=== PATIENT | female | born 1990 | race African-American/Black ===

== ENCOUNTER 2023-10-25 09:10 | Outpatient (OUT) | payer OTHER, SELFPAY ==
[2023-10-25 10:20] LABS: Basophils Percent Auto 0.4 % (0.2-2.0); Eosinophils Percent Auto 0.5 % (0.9-7.0); Hematocrit 44.9 % (36.0-48.0); Hemoglobin 14.2 g/dL (12.0-16.0); Immature Granulocytes Abs Auto 0.02 10^3/uL (0.00-0.03); Immature Granulocytes Pct Auto 0.3 % (0.0-0.5); Lymphocytes Absolute Auto 3.3 10^3/uL (1.2-3.8); Lymphocytes Percent Auto 43.5 % (20.5-60.0); Mean Corpuscular HGB Conc 31.6 g/dL (29.9-35.2); Mean Corpuscular Hemoglobin 27.4 pg (26.7-34.0); Mean Corpuscular Volume 86.7 fL (81.0-99.0); Mean Platelet Volume 10.9 fL (9.5-13.5); Monocytes Absolute Auto 0.6 10^3/uL (0.3-0.8); Monocytes Percent Auto 8.5 % (1.7-12.0); Neutrophils Absolute Auto 3.6 10^3/uL (1.4-6.5); Neutrophils Percent Auto 46.8 % (43.0-75.0); Platelet Count 276 10^3/uL (150-450); Red Blood Count 5.18 10^6/uL (4.20-5.40); Red Cell Distribution Width 12.6 % (11.0-15.0); White Blood Count 7.6 10^3/uL (4.0-11.0)
[2023-10-25 11:00] LABS: Alanine Aminotransferase 25 U/L (14-59); Albumin Globulin Ratio 0.9; Albumin Level 3.6 g/dL (3.4-5.0); Alkaline Phosphatase 82 U/L (46-116); Anion Gap 13.9; Aspartate Amino Transferase 19 U/L (15-37); BUN Creatinine Ratio 9.9; Bilirubin Total 0.3 mg/dL (0.2-1.0); Calcium 8.7 mg/dL (8.5-10.1); Carbon Dioxide 25.3 mmol/L (21.0-32.0); Chloride 103 mmol/L (98-107); Chol HDL Ratio 4.2; Cholesterol 152 mg/dL (<=200); Estimated GFR (African America >60 (>=60); Estimated GFR (Non-African Ame >60 (>=60); Globulin 4.1 g/dL; Glucose 100 mg/dL (74-106); HDL Cholesterol 36 mg/dL (40-60); Potassium 4.2 mmol/L (3.5-5.1); Sodium 138 mmol/L (136-145); Total Protein 7.7 g/dL (6.4-8.2); Triglycerides 81 mg/dL (<=150); VLDL CHOLESTEROL 16.2 mg/dL
== END 2023-10-25 09:11 | disposition home or self-care (01) ==
LOC: LAB 09:11
PROVIDERS: PCP Nurse Practitioner Family; Visit Provider Nurse Practitioner Family
DX: Z00.00 Encounter for general adult medical examination without abnormal findings (principal); Z13.228 Encounter for screening for other metabolic disorders; Z13.0 Encounter for screening for diseases of the blood and blood-forming organs and certain disorders involving the immune mechanism
CPT/HCPCS: 36415; 80053; 80061; 85025

== ENCOUNTER 2024-10-27 13:06 | Emergency (ER) | payer SELFPAY ==
[2024-10-27 13:11] VITALS: BP 152/103; PULSE 100; TEMP 36.8; O2SAT 100; BMI 29.3
--- OUTSIDE RECORDS SUMMARY | 2024-10-27 13:28 | XMS_ITS | Patient Health Record ---
Author Organization [facility] vices Address [address] [place] [place] [id number] Care Team Providers Care Frame Opener Name Role Phone Kimmie Kay Unavailable [phone] Reason For Referral No Information Encounters Encounter Location Date Provider Diagnosis Main [address] [place] [id number] 08/17/2024 Kimmie Kay Plan Of Treatment No Information
--- OUTSIDE RECORDS SUMMARY | 2024-10-27 13:28 | XMS_ITS | Clinical Summary ---
Author Organization [facility] tem Address [id number] [address] [place] [address] Care Team Providers Care Ticket Counter Name Role Phone No Pcp, No Pcp Primary Care Provider Unavailabl e Allergies No known active allergies Medications omeprazole (PriLOSEC) 20 mg capsule Take 1 capsule (20 mg total) by mouth every morning before breakfast. 14 capsule 08/04/2024 Active Encounters Date Type Department Care Team Description 08/04/2024 6:12 PM EDT - 08/04/2024 8:01 PM EDT Emergency [facility] - Emergency [address] [place] [address] Catarino Sharp MD Chest pain, unspecified type (Primary Dx) Discharge Disposition: Home 08/04/2024 Travel from Last 3 Months Social History Tobacco Use Types Packs/Day Years Used Date Smoking Tobacco: Never Smokeless Tobacco: Never Tobacco Cessation:Counseling Given: Not Answered Hunger Screening Answer Date Recorded Within the past 12 months we worried whether our food would run out before we got money to buy more. Never True 08/04/2024 Within the past 12 months th e food we bought just didn't last and we didn't have money to get more. Never True 08/04/2024 Comments No Sex and Gender Information Value Date Recorded Sex Assigned at Not on file Legal Sex Female 6:09 PM EDT Gender Identity Not on file Sexual Orientation Not on file Last Filed Vital Signs Vital Sign Reading Time Taken Comments Blood Pressure 130/96 08/04/2024 7:50 PM EDT Pulse 79 08/04/2024 7:50 PM EDT Temperature 37.3 C (99.1 F) 08/04/2024 6:18 PM EDT Respiratory Rate 08/04/2024 7:50 PM EDT Oxygen Saturation 100% 08/04/2024 7:50 PM EDT Inhaled Oxygen Concentration - - Weight 65.8 kg (145 lb) 08/04/2024 6:18 PM EDT Height 154.9 cm (5' 1 ) 08/04/2024 6:18 PM EDT Body Mass Index 27.4 08/04/2024 6:18 PM EDT Plan of Treatment Health Maintenance Due Date Last Done Comments Depression Screening 2000 Adult BMI Follow Up Plan 2006 DTaP,Tdap and Td Vaccines (1 - Tdap) 12/17/2007 Pap Smear 2009 Influenza Vaccine 01/17/2025 Adult BMI Screening 08/04/2025 08/04/2024 Tobacco Screening 08/04/2025 08/04/2024 Medical Devices Not on file Procedures Procedure Name Priority Date/Time Associated Diagnosis Comments TROP I, HIGH SENSITIVITY 1 HOUR STAT 08/04/2024 7:28 PM EDT XR CHEST 1 VW STAT 08/04/2024 6:50 PM EDT TROPONIN I, HIGH SENSITIVITY STAT 08/04/2024 6:29 PM EDT LIPASE STAT 08/04/2024 6:29 PM EDT COMPREHENSIVE METABOLIC PANEL STAT 08/04/2024 6:29 PM EDT CBC WITH AUTO DIFFERENTIAL STAT 08/04/2024 6:29 PM EDT ECG 12-LEAD STAT 08/04/2024 6:20 PM EDT from Last 3 Months Results * Troponin I, High Sensitivity 1 Hour (08/04/2024 7:28 PM EDT) 1 Hour Trop I, High Sensitivity <2 <16 ng/L 08/04/2024 7:56 PM EDT [facility] Blood Serum / Unknown 08/04/2024 7 :28 PM EDT 08/04/2024 7:29 PM EDT Elsa MURPHY LAB BLOOD ORDERABLES Final Result [facility] [address] [facility] [place] [address] * X-ray chest 1 view (08/04/2024 6:50 PM EDT) Anatomical Region Laterality Modality Body, Chest N/A Computed Radiogr aphy 08/04/2024 6:52 PM EDT Narrative 08/04/2024 6:52 PM EDT EXAM: XR CHEST 1 VW CLINICAL INFORMATION: cp. COMPARISON: None. FINDINGS: There are no pleural effusions. The lungs are clear and well aerated. Heart size is within normal limits. IMPRESSION: 1. Normal chest. Finalized by Esteban Haney MD on 08/04/2024 6:52 PM Procedure Note Esteban Haney MD - 08/04/2024 EXAM: XR CHEST 1 VW CLINICAL INFORMATION: cp. COMPARISON: None. FINDINGS: There are no pleural effusions. The lungs are clear and well aerated.Heart size is within normal limits. IMPRESSION: 1. Normal chest. Finalized by Esteban Haney MD on 08/04/2024 6:52 PM Elsa MURPHY IMG DIAGNOSTIC IMAGIN G ORDERABLES Final Result * Troponin I, High Sensitivity (08/04/2024 6:29 PM EDT) Troponin I, High Sensitivity <2 <16 ng/L 08/04/2024 7:20 PM EDT [facility] Blood Serum / Unknown 08/04/2024 6 :29 PM EDT 08/04/2024 6:50 PM EDT Elsa Alvarado IC DESIGNER STANDARD CELLS-WELDING ESTIMATOR LAB BLOOD ORDERABLES Final Result [facility] [address] [facility] [place] [address] * (ABNORMAL) CBC auto differential (08/04/2024 6:29 PM EDT) White Blood Cells 7.5 4.0 - 11.0 X10E9/L 08/04/2024 6:58 PM EDT [facility] RBC count 5.04 3.80 - 5.20 X10E12/L 08/04/2024 6:58 PM EDT [facility] Hemoglobin 14.2 11.7 - 15.5 g/dL 08/04/2024 6:58 PM EDT [facility] Hematocrit 42.8 35 - 47 % 08/04/2024 6:58 PM EDT [facility] MCV 85 80 - 100 fL 08/04/2024 6:58 PM EDT [facility] MCH 28.1 27 - 34 pg 08/04/2024 6:58 PM EDT [facility] MCHC 33.1 32 - 36 g/dL 08/04/2024 6:58 PM EDT [facility] RDW 13.4 11.5 - 15.0 % 08/04/2024 6:58 PM EDT [facility] Platelets 302 150 - 450 X10E9/L 08/04/2024 6:58 PM EDT [facility] MPV 8.8 7 - 12 fL 08/04/2024 6:58 PM EDT [facility] % neutrophils 40.5 % 08/04/2024 6:58 PM EDT [facility] % lymphocytes 49.3 % 08/04/2024 6:58 PM EDT [facility] % monocytes 9.0 % 08/04/2024 6:58 PM EDT [facility] % eosinophils 0.7 % 08/04/2024 6:58 PM EDT [facility] % Basophils 0.5 % 08/04/2024 6:58 PM EDT [facility] Neutrophils Absolute (A) 3.0 1.5 - 6.6 X10E9/L 08/04/2024 6:58 PM EDT [facility] Lymphocytes Absolute 3.7(H) 1.0 - 3.5 X10E9/L 08/04/2024 6:58 PM EDT [facility] Monocytes Absolute 0.7 0 - 0.9 X10E9/L 08/04/2024 6:58 PM EDT [facility] Eosinophils Absolute 0.0 0.0 - 0.4 X10E9/L 08/04/2024 6:58 PM EDT [facility] Basophils Absolute 0.0 0.0 - 0.2 X10E9/L 08/04/2024 6:58 PM EDT [facility] Blood Blood / Unknown 08/04/2024 6 :29 PM EDT 08/04/2024 6:50 PM EDT Elsa Alvarado IC DESIGNER STANDARD CELLS-WELDING ESTIMATOR LAB BLOOD ORDERABLES Final Result [address] [address] * Lipase (08/04/2024 6:29 PM EDT) Pathologist [facility] Lipase 31 17 - 40 U/L 08/04/2024 7:20 PM EDT [facility] Blood (PLASMA) 08/04/2024 6: 29 PM EDT 08/04/2024 6:50 PM EDT Elsa Alvarado IC DESIGNER STANDARD CELLS-WELDING ESTIMATOR LAB BLOOD ORDERABLES Final Result [address] [address] * (ABNORMAL) Comprehensive metabolic panel (08/04/2024 6:29 PM EDT) Sodium 133(L) 134 - 146 mmol/L 08/04/2024 7:20 PM EDT [facility] Potassium, Bld 3.4(L) 3.5 - 5.0 mmol/L 08/04/2024 7:20 PM [facility] Chloride 108 98 - 109 mmol/L 08/04/2024 7:20 PM [facility] CO2 21(L) 22 - 32 mmol/L 08/04/2024 7:20 PM [facility] Anion gap 4(L) 5 - 15 mmol/L 08/04/2024 7:20 PM [facility] BUN 12 5 - 23 mg/dL 08/04/2024 7:20 PM [facility] Creatinine 0.85 0.40 - 1.00 mg/dL 08/04/2024 7:20 PM [facility] Comment:METHOD TRACEABLE TO IDAR STANDARD Glucose 101(H) 65 - 99 mg/dL 08/04/2024 7:20 PM [facility] Calcium 9.2 8.5 - 10.5 mg/dL 08/04/2024 7:28 PM [facility] Total Protein 7.8 6.0 - 8.0 g/dL 08/04/2024 7:20 PM [facility] Albumin 4.4 3.2 - 5.3 g/dL 08/04/2024 7:20 PM [facility] Alkaline Phosphatase 66 39 - 130 U/L 08/04/2024 7:20 PM [facility] AST 17 0 - 41 U/L 08/04/2024 7:20 PM [facility] ALT 13 0 - 31 U/L 08/04/2024 7:20 PM [facility] Total bilirubin 0.3 0.3 - 1.2 mg/dL 08/04/2024 7:20 PM [facility] eGFR (CKD-EPI)non-rac e dependent >90 >59 ml/min/1.7 3sq.m 08/04/2024 7:20 PM [facility] Comment: Reported eGFR is based on the CKD-EPI 2020 equation that does not use a race coefficient. Blood (PLASMA) 08/04/2024 6: 29 PM EDT 08/04/2024 6:50 PM EDT us Elsa Alvarado IC DESIGNER STANDARD CELLS-WELDING ESTIMATOR LAB BLOOD ORDERABLES Final Result [address] [place] [address] * ECG 12 lead (08/04/2024 6:20 PM EDT) 08/04/2024 6:20 PM EDT Narrative [facility] - 08/04/2024 7:03 PM EDT us Catarino Sharp MD ECG ORDERABLES Final Result [facility] from Last 3 Months Insurance [facility] MEDICAID Care Teams Ticket Counter Relationship Specialty Start Date End Date No Pcp, [place] [address] PCP - General Family Medicine 08/04/24
--- NOTE | 2024-10-27 13:38 | ED.GENADUL1 ---
HPI HPI - General Adult General Chief complaint: Extremity Injury, Upper Stated complaint: LUMP ON HAND Time Seen by Provider: 10/27/24 13:20 Source: patient Mode of arrival: walk-in History of Present Illness HPI narrative: 23-year-old female presents to the emergency department complaint of lump to the back of her left hand. Had been having some discomfort in this region over this past year, but the lump showed about 3 weeks ago. Has not noted to get any bigger or smaller. Notices some irritation in association with moving boxes at work. Denies any injury, motor or sensory changes, paresthesias. Quality:?as above Severity:?Mild Timing:?as above, constant Context: Normal setting and activity? Modifying factors:?irritation of the area worse with palpation Associated symptoms: none Related Data Home Medications ?Medication ?Instructions ?Recorded ?Confirmed No Known Home Medications 10/27/24 10/27/24 Allergies Allergy/AdvReac Type Severity Reaction Status Date / Time No Known Drug Allergies Allergy Verified 10/27/24 13:11 Opioid HPI Opioid Management Most Recent Opioid Data: Last Pain Scale 0 Today, 13:11 Review of Systems ROS Narrative CONST: Denies activity change, weakness MS: +swelling. Denies arthralgias.?Denies myalgias SKIN: Denies color change, wound NEURO: Denies numbness, paresthesias, weakness PFSH PFSH Social History Little interest or pleasure in doing things: not at all Feeling down, depressed, or hopeless: not at all Exam Narrative Exam Narrative: Vital signs noted Nurses notes reviewed CONST: Nontoxic, well appearing, well nourished, in no distress.? HENT: normocephalic, atraumatic. CV: 2+ palpable left radial pulse MS: Left hand: Patient has mass overlying the base of her second metacarpal dorsally consistent with ganglion cyst. Complains of only mild tenderness. No tenderness to the remainder of the hand.? No ecchymosis, discoloration, crepitus, deformity, instability, warmth.? Active ROM is full with flexion, extension of all digits, wrist.? Strength 5/5 NEURO: Sensory intact throughout and distal to the injury SKIN: intact, warm, dry.? No wound PSYCHIATRIC: normal mood, affect Constitutional Vital Signs, click to edit/add: Last Vital Signs Temp 98.2 F 10/27/24 13:11 Pulse 100 H 10/27/24 13:11 Resp 16 10/27/24 13:11 BP 152/103 H 10/27/24 13:11 Pulse Ox 100 10/27/24 13:11 O2 Del Method Room Air 10/27/24 13:11 Course Vital Signs Vital signs: Vital Signs Temperature 98.2 F 10/27/24 13:11 Pulse Rate 100 H 10/27/24 13:11 Respiratory Rate 16 10/27/24 13:11 Blood Pressure 152/103 H 10/27/24 13:11 Pulse Oximetry 100 10/27/24 13:11 Oxygen Delivery Method Room Air 10/27/24 13:11 Temperature 98.2 F 10/27/24 13:11 Pulse Rate 100 H 10/27/24 13:11 Respiratory Rate 16 10/27/24 13:11 Blood Pressure 152/103 H 10/27/24 13:11 Pulse Oximetry 100 10/27/24 13:11 Oxygen Delivery Method Room Air 10/27/24 13:11 Medical Decision Making MDM Narrative Medical decision making narrative: This is a pleasant 33-year-old female who presents to the emergency department for evaluation of a lump to the back of her left hand On arrival, afebrile, vitals stable Exam, nontoxic, well-appearing patient in no distress. She has a mass/swelling to the dorsal aspect of her left hand at the base of the second metacarpal consistent with ganglion cyst. No discoloration, warmth. Range of motion full. Neurovascularly intact Favor ganglion cyst Fracture, dislocation less likely based on physical exam History and Record Review Additional records reviewed: No records Diagnostic testing considered but not performed: X-ray. No trauma reported Disposition ? The patient was discharged. Plan: Patient will be discharged to home.? Condition at time of disposition: stable.? Advised to follow up with referral provider, name and number placed on discharge paperwork. Advised to return for any worsening and/or development of new, concerning signs or symptoms PLEASE NOTE: Portions of the medical record may have been produced using electronic trawl net maker and may contain errors with respect to translation of words which may not have been identified prior to finalization of the chart. Discharge Plan Discharge Chief Complaint: Extremity Injury, Upper Clinical Impression: Ganglion cyst of tendon sheath of left hand, Hand pain, left Patient Disposition: Home, Self-Care Time of Disposition Decision: 13:35 Condition: Good Mode of Transportation: Private Vehicle Prescriptions / Home Meds: No Action No Known Home Medications Print Language: Welsh Instructions: Ganglion Cyst (ED) Referrals: Cooper Germain MD [Physician, Orthopedics] - 1 week Discharge Date/Time: 10/27/24 13:45
== END 2024-10-27 13:45 | disposition home or self-care (01) ==
PROVIDERS: Emergency Provider Emergency Medicine; PCP Nurse Practitioner Family
DX: R22.32 Localized swelling, mass and lump, left upper limb (principal); M67.442 Ganglion, left hand
CPT/HCPCS: 99281